=== PATIENT | male | born 1980 | race Caucasian/White ===

== ENCOUNTER → 2021-02-18 07:41 | Outpatient (BNVA) | payer SELFPAY | DX: Z11.1 Encounter for screening for respiratory tuberculosis (principal) ==

== ENCOUNTER → 2021-03-21 11:01 | Outpatient (BNVA) | payer SELFPAY | DX: Z76.89 Persons encountering health services in other specified circumstances (principal) ==

== ENCOUNTER 2023-04-02 14:43 | Outpatient (AMB) | payer OTHER, SELFPAY ==
--- NOTE | 2023-04-02 14:52 | MHC.PC.OV ---
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 Accompanied by: Self / Same As Patient Allergies No Known Allergies Allergy (Verified 04/02/23 14:57) Tobacco use date assessed: 04/02/23 Dental Screening Dental Screen Date: 04/02/23 Did you have a dental visit in the last 12 months?: No Did you have a dental problem in the last 6 months where you did not have access to dental care?: No Was dental information given to patient?: Yes HPI 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 Abd surgery for testicular metastasis. R ACL FHx: mGM: DM. SocHx: Nonsmoker. EtOH social few days a week 1-2 or up to 3-4 weekends PFSH Medical History (Updated 04/02/23 @ 16:07 by Trip Mcmillan) Anxiety Testicular cancer Tinea versicolor Surgical History (Updated 04/02/23 @ 15:14 by Amy Wetzel MA) H/O abdominal surgery History of orchiectomy History of repair of ACL Family History (Updated 04/02/23 @ 15:15 by Amy Wetzel MA) Maternal Grandfather Diabetes Social History Housing: Apartment Patient Tobacco Use Status: Never used Tobacco e-Cigarette/Vaping Use: Never Used service: No Current occupational status: employed Current occupation: [employer] Cognitive needs: No Hearing needs: No Vision needs: No Questionnaire PHQ-9 Over the last 2 weeks, how often have you been bothered by any of the following problems? 1. Little interest or pleasure in doing things: not at all 2. Feeling down, depressed, or hopeless: not at all 3. Trouble falling or staying asleep, or sleeping too much: not at all 4. Feeling tired or having little energy: not at all 5. Poor appetite or overeating: not at all 6. Feeling bad about yourself - or that you are a failure or have let yourself or your family down: not at all 7. Trouble concentrating on things, such as reading the newspaper or watching television: not at all 8. Moving or speaking so slowly that other people could have noticed. Or the opposite - being so fidgety or restless that you have been moving around a lot more than usual: not at all 9. Thoughts that you would be better off or of hurting yourself in some way: not at all Total score: 0 Source: Developed by Drs. Joel Glass, Mei Long, Marvin Pedroza and colleagues, with an educational marcelo from [employer]. Thrive Questionnaire Date Thrive assessed: 04/02/23 I am a: Patient What is your living situation today?: I have a steady place to live Within the past 12 months, did the food you bought not last and you didn't have the money to get more?: Never true Within the past 12 months, did you worry whether your food would run out before you got money to buy more?: Never true Do you have trouble paying for medicines?: No Do you have trouble getting transportation to medical appointments?: No Do you have trouble paying your heating and electricity bill?: No Do you have trouble taking care of your child, family member or friend?: No Do you have trouble with day-to-day activities such as bathing, preparing meals, shopping, managing finances, etc.?: No Are you currently unemployed and looking for a job?: No Are you interested in more education?: No Please select the resources that you would like help with: None Currently or been in a relationship where the following occur: no concerns reported AUDIT C Alcohol Use Questionnaire (AUDIT-C) 1. How often do you have a drink containing alcohol?: 2-3 times a week 2. How many drinks containing alcohol do you have on a typical day when you are drinking?: 1 or 2 3. How often do you have six or more drinks on one occasion?: Never Total Score: 3 JOSE-7 AMB Questionnaire JOSE-7 Feeling nervous, anxious, or on edge: 1 = Several days Not being able to stop or control worryin = Not at all Worrying too much about different things: 0 = Not at all Trouble relaxin = Not at all Being so restless that it is hard to sit still: 0 = Not at all Becoming easily annoyed or irritable: 0 = Not at all Feeling afraid as if something awful might happen: 0 = Not at all Total JOSE-7 score (0-4 normal; 5-9 mild; 10-14 moderate; 15-21 severe): 1 Source: Developed by Drs. oJel Glass, Mei Long, Marvin Pedroza and colleagues, with an educational marcelo from [employer]. Review of Systems Const Denies chills, Denies fatigue, Denies fever(s), Denies headache(s) and Denies weakness ENT Denies dizziness and Denies headache(s) Card Denies chest pain, Denies lightheadedness, Denies dyspnea and Denies other (Palpitations) Resp Denies cough, Denies dyspnea, Denies wheezing and Denies other ( shortness of breath) Musc Denies numbness and Denies tingling Neuro Denies dizziness, Denies headache(s), Denies numbness, Denies tingling, Denies paresthesias and Denies weakness Psych Denies anxiety and Denies depression Endo Denies fatigue Aller/Immun Denies wheezing Physical exam (Primary Care) Vital Signs: Last Vital Signs Temp 97.6 F 04/02/23 14:53 Pulse 72 04/02/23 14:53 Resp 12 04/02/23 14:53 BP 118/64 04/02/23 14:53 Pulse Ox 98 04/02/23 14:53 Oxygen Delivery Method Room Air 04/02/23 14:53 BMI result Body Mass Index 26.1 Tobacco/Smoking Status: Tobacco use Status Tobacco use date assessed 04/02/23 04/02/23 14:59 Patient Tobacco Use Status Never used Tobacco 04/02/23 14:59 e-Cigarette/Vaping Use Never Used 04/02/23 14:59 PHQ-9: PHQ-9 Score PHQ-9: Total score 0 04/02/23 15:47 Thrive Assessment: Date of Thrive Assessment Date Thrive assessed 04/02/23 04/02/23 15:17 Currently or been in a relationship where the following occur: no concerns reported Const General: no acute distress and well developed Nutritional Appearance: well nourished Orientation/consciousness: patient oriented x3 HENMT Head: Yes normocephalic and Yes atraumatic Eyes General: appearance normal, both eyes and all related structures Pupils: Equal, round and reactive pupils present EOM: EOMs intact bilaterally Resp Effort & Inspection: normal respiratory effort Auscultation: clear to auscultation bilaterally Cardio Rate: regular rate Rhythm: regular rhythm Heart sounds: S1 normal heart sound present, S2 normal heart sound present, no gallops, no murmurs and no rubs Neuro General: patient oriented x3 and gait normal Cranial nerves: Yes Equal, round and reactive pupils present Psych Affect: normal affect Assessment and Plan Assessment & Plan (1) Anxiety: Code(s): F41.9 - Anxiety disorder, unspecified Plan: History of mild anxiety and patient notes that he was on fluoxetine in the past. He can let me know if he needs any a treatment but currently he is stable. (2) Tinea versicolor: Code(s): B36.0 - Pityriasis versicolor Plan: Recurrent tinea versicolor Start Diflucan and he can use ketoconazole shampoo Change short frequently and avoid excess moisture Referred to Dermatology at patient request (3) Difficulty sleeping: Code(s): G47.9 - Sleep disorder, unspecified Plan: Mild difficulty sleeping which is managed with melatonin. He can continue this strategy though I advised he take holidays from this when he can. (4) History of testicular cancer: Code(s): Z85.47 - Personal history of malignant neoplasm of testis Plan: Check labs (5) Laboratory exam ordered as part of routine general medical examination: Code(s): Z00.00 - Encounter for general adult medical examination without abnormal findings Plan: Check labs Orders: Orders Comprehensive [place]. Panel Fast Today Z00.00 - Encounter for general adult medical examination without abnormal findings Lipid Panel Today Z00.00 - Encounter for general adult medical examination without abnormal findings Prostate Specific Antigen Scr Today Z12.5 - Encounter for screening for malignant neoplasm of prostate TSH reflex Free T4 Today Z00.00 - Encounter for general adult medical examination without abnormal findings Microalbumin, Random (w Creat) Today I10 - Essential (primary) hypertension UA and rflx microscopic Today Z00.00 - Encounter for general adult medical examination without abnormal findings AFP Quad Screen Today Z85.47 - Personal history of malignant neoplasm of testis Carcinoembryonic Antigen Today Z85.47 - Personal history of malignant neoplasm of testis HCG Tumor Marker Today Z. - Personal history of malignant neoplasm of testis Lactate Dehydrogenase Today Z85. - Personal history of malignant neoplasm of testis Testosterone, Free/Total Today Z85. - Personal history of malignant neoplasm of testis Complete Blood Count Auto Diff Today Z. - Encounter for general adult medical examination without abnormal findings, Z.47 - Personal history of malignant neoplasm of testis Referrals Dermatology Referral B36.0 - Pityriasis versicolor Medications: New fluconazole (Diflucan) 150 mg PO QWEEK 4 tabs 0RF 28 days ketoconazole 1% (Nizoral A-D) 1 appl topical Q3D 200 mL 1RF 15 days Coding Level of Care Code New Pt Level 4 (92493) Diagnoses Anxiety F41.9 Tinea versicolor B36.0 Difficulty sleeping G47.9 History of testicular cancer Z. Laboratory exam ordered as part of routine general medical examination Z.
[2023-04-02 14:53] VITALS: BP 118/64; PULSE 72; RESP 12; TEMP 36.4; O2SAT 98; BMI 26.1
== END 2023-04-02 16:02 | disposition home or self-care (01) ==
PROVIDERS: PCP Family Medicine; Visit Provider Family Medicine
DX: F41.9 Anxiety disorder, unspecified (principal); B36.0 Pityriasis versicolor; G47.9 Sleep disorder, unspecified; Z85.47 Personal history of malignant neoplasm of testis; Z00.00 Encounter for general adult medical examination without abnormal findings
CPT/HCPCS: 99204

== ENCOUNTER → 2023-10-12 12:09 | Outpatient (BNVA) | payer OTHER, SELFPAY | PROVIDERS: PCP Family Medicine; Visit Provider Physician Assistant Medical | DX: Z13.89 Encounter for screening for other disorder (principal) | CPT/HCPCS: 36415; 84450; 84460; 85027; 86803; 87389; 99204 ==

== ENCOUNTER → 2023-10-14 13:17 | Outpatient (BNVA) | payer OTHER, SELFPAY | PROVIDERS: PCP Family Medicine; Visit Provider Physician Assistant Medical | DX: Z13.89 Encounter for screening for other disorder (principal) | CPT/HCPCS: 99213 ==

== ENCOUNTER 2023-10-21 14:30 | Outpatient (AMB) | payer OTHER, SELFPAY ==
[2023-10-21 14:34] VITALS: BP 104/66; PULSE 68; RESP 13; TEMP 36.6; O2SAT 98; BMI 26.1
--- NOTE | 2023-10-21 14:34 | A.OFFPC_ITS ---
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 No recent labs to review. Pt notes he keeps himself active and goes to the gym a few times a week. He states he tries to eat a healthy diet. [facility] Medical History Tinea versicolor Testicular cancer Anxiety Surgical History H/O abdominal surgery History of orchiectomy History of repair of ACL Family History Maternal Grandfather Diabetes Social History Housing: Condominium Patient Tobacco Use Status: Never used Tobacco e-Cigarette/Vaping Use: Never Used service: No Current occupational status: employed Current occupation: [employer] Cognitive needs: No Hearing needs: No Vision needs: Yes Questionnaire PHQ-9 Over the last 2 weeks, how often have you been bothered by any of the following problems? 1. Little interest or pleasure in doing things: not at all 2. Feeling down, depressed, or hopeless: not at all 3. Trouble falling or staying asleep, or sleeping too much: not at all 4. Feeling tired or having little energy: not at all 5. Poor appetite or overeating: not at all 6. Feeling bad about yourself - or that you are a failure or have let yourself or your family down: not at all 7. Trouble concentrating on things, such as reading the newspaper or watching television: not at all 8. Moving or speaking so slowly that other people could have noticed. Or the opposite - being so fidgety or restless that you have been moving around a lot more than usual: not at all 9. Thoughts that you would be better off or of hurting yourself in some way: not at all Total score: 0 Depression Screening Interpretation: Negative Depression Screening Done: Yes Source: Developed by Drs. Joel Glass, Mei Long, Marvin Pedroza and colleagues, with an educational marcelo from [employer]. Thrive Questionnaire Date Thrive assessed: 10/21/23 I am a: Patient What is your living situation today?: I have a steady place to live Within the past 12 months, did the food you bought not last and you didn't have the money to get more?: Never true Within the past 12 months, did you worry whether your food would run out before you got money to buy more?: Never true Do you have trouble paying for medicines?: No Do you have trouble getting transportation to medical appointments?: No Do you have trouble paying your heating and electricity bill?: No Do you have trouble taking care of your child, family member or friend?: No Do you have trouble with day-to-day activities such as bathing, preparing meals, shopping, managing finances, etc.?: No Are you currently unemployed and looking for a job?: No Are you interested in more education?: No Please select the resources that you would like help with: None Currently or been in a relationship where the following occur: no concerns reported THRIVE Score: 0 AUDIT C Alcohol Use Questionnaire (AUDIT-C) 1. How often do you have a drink containing alcohol?: 2-3 times a week 2. How many drinks containing alcohol do you have on a typical day when you are drinking?: 1 or 2 3. How often do you have six or more drinks on one occasion?: Never Total Score: 3 JOSE-7 AMB Questionnaire JOSE-7 Date JOSE - 7 assessed: 10/21/23 Feeling nervous, anxious, or on edge: 0 = Not at all Not being able to stop or control worryin = Not at all Worrying too much about different things: 0 = Not at all Trouble relaxin = Not at all Being so restless that it is hard to sit still: 0 = Not at all Becoming easily annoyed or irritable: 0 = Not at all Feeling afraid as if something awful might happen: 0 = Not at all Total JOSE-7 score (0-4 normal; 5-9 mild; 10-14 moderate; 15-21 severe): 0 Source: Developed by Drs. Joel Glass, Mei Long, Marvin Pedroza and colleagues, with an educational marcelo from [employer]. JOSE-7 Assessment Billing JOSE-7 Assessment Tool: JOSE-7 Assessment 59521 Review of Systems Const Denies chills, Denies fatigue, Denies fever(s), Denies headache(s) and Denies weakness Eyes Denies change in vision ENT Denies dizziness, Denies headache(s), Denies hearing loss, Denies nasal congestion, Denies sinus pain, Denies sinus pressure and Denies sore throat Card Denies chest pain, Denies lightheadedness, Denies dyspnea and Denies other (palpitations) Resp Denies cough, Denies dyspnea and Denies wheezing GI Denies abdominal pain, Denies melena, Denies hematochezia, Denies change in bowel habits, Denies dyspepsia and Denies nausea Denies hematuria and Denies dysuria Musc Denies abnormal gait, Denies myalgias, Denies arthralgias, Denies numbness and Denies tingling Skin/Breast Denies rash, Denies unusual bruising and Denies wounds Neuro Denies abnormal gait, Denies dizziness, Denies headache(s), Denies memory loss, Denies numbness, Denies Sensory deficit (Neuro), Denies tingling and Denies weakness Psych Denies anxiety, Denies depression and Denies memory loss Endo Denies cold intolerance, Denies fatigue, Denies heat intolerance, Denies polydipsia and Denies polyuria Max/Lymph Denies easy bleeding and Denies easy bruising Aller/Immun Denies wheezing Physical exam (Primary Care) Vital Signs: Last Vital Signs Temp 97.8 F 10/21/23 14:34 Pulse 68 10/21/23 14:34 Resp 13 10/21/23 14:34 BP 104/66 10/21/23 14:34 Pulse Ox 98 10/21/23 14:34 Oxygen Delivery Method Room Air 10/21/23 14:34 BMI result Body Mass Index 26.1 Tobacco/Smoking Status: Tobacco use Status Tobacco use date assessed 10/21/23 10/21/23 14:45 Patient Tobacco Use Status Never used Tobacco 10/21/23 14:39 e-Cigarette/Vaping Use Never Used 10/21/23 14:39 PHQ-9: PHQ-9 Score PHQ-9: Total score 0 10/21/23 14:47 Depression Screening Interpretation: Negative Thrive Assessment: Date of Thrive Assessment Date Thrive assessed 10/21/23 10/21/23 14:45 Currently or been in a relationship where the following occur: no concerns reported Const General: no acute distress, well developed, alert and awake Nutritional Appearance: well nourished Orientation/consciousness: patient oriented x3 HENMT Head: Yes normocephalic and Yes atraumatic Ears: hearing grossly normal bilaterally and TM's normal bilaterally General nose exam: Normal external nose present and Normal nares present Mouth: Normal oral and palatal mucosa present and moist mucous membranes Teeth and gingiva: dentition normal Throat: Yes posterior oropharynx normal Eyes General: appearance normal, both eyes and all related structures Pupils: Equal, round and reactive pupils present and Pupil accommodation reflex normal EOM: EOMs intact bilaterally Neck Neck: Yes normal visual inspection, Yes no lymphadenopathy and Yes trachea midline Thyroid: Thyroid normal Carotids: no bruits Lymphatic: no lymphadenopathy noted Chest Chest palpation & inspection: normal inspection of the chest Resp Effort & Inspection: normal respiratory effort Auscultation: clear to auscultation bilaterally Cardio Rate: regular rate Rhythm: regular rhythm Heart sounds: S1 normal heart sound present, S2 normal heart sound present, no gallops, no murmurs and no rubs Bruits: no abdominal aortic bruits and no carotid bruits GI Palpation (GI): No Abdominal aortic bruit present, Soft to palpation, nontender, No hepatosplenomegaly present and No Rebound tenderness present Auscultation: normal bowel sounds General: Yes no CVA tenderness Back/Spine/Pelvis Back: no CVA tenderness Cervical Spine: cervical ROM normal and No Cervical spine tenderness Thoracic/Lumbar Spine: thoraco-lumbar ROM normal, No pain with thoraco-lumbar ROM, No thoracic spinal tenderness and No lumbar spinal tenderness Skin Lesions: no lesions Rashes: no rashes Trauma: no lacerations or abrasions Wounds: no wounds Nails: normal Neuro General: patient oriented x3 Cranial nerves: Yes Equal, round and reactive pupils present Cognition (Neuro): normal cognition Gait exam (Neuro): Normal gait present Motor exam (neuro): 5/5 motor strength present throughout Sensory Exam: No Sensory deficit (Neuro) Deep tendon reflexes (DTR's): Right patellar reflex intensity grade: 2+ and Left patellar reflex intensity grade: 2+ Extrem General: Yes normal to inspection and No edema Psych Appearance: grossly normal Affect: normal affect Attitude: cooperative Thought process: Normal thought process present Assessment and Plan Assessment & Plan (1) Adult general medical exam: Code(s): Z00.00 - Encounter for general adult medical examination without abnormal findings Plan: 43-year-old?male?presents?for?complete?physical?exam Encouraged?ongoing?healthy?diet?with?active?lifestyle?and?plenty?of?exercise (2) Screening for prostate cancer: Code(s): Z12.5 - Encounter for screening for malignant neoplasm of prostate Plan: Checking?PSA?level (3) Rash: Code(s): R21 - Rash and other nonspecific skin eruption Plan: Rash?did?not?resolve?with?Diflucan?and?ketoconazole. Will?give?him?a?script?for?betamethasone-clotrimazole?cream?and?he?already?has?a ?referral?to?new?[place].??He?will?give?them?a?call. Medications: New clotrimazole-betamethasone 1-0.05 % 1 appl topical BID 60 grams 1RF 2 weeks Coding Level of Care Code Est Pt Level 3 (38621) Est Pt Prev Care 40-64y(56060) Diagnoses Adult general medical exam Z00.00 Screening for prostate cancer Z12.5 Rash R21 Additional Codes JOSE-7 Assessment Billing - JOSE-7 Assessment Tool: JOSE-7 Assessment 46463 ([id number])
== END 2023-10-21 15:11 | disposition home or self-care (01) ==
PROVIDERS: PCP Family Medicine; Visit Provider Family Medicine
DX: Z00.00 Encounter for general adult medical examination without abnormal findings (principal); Z12.5 Encounter for screening for malignant neoplasm of prostate; R21 Rash and other nonspecific skin eruption
CPT/HCPCS: 99213; 99396

== ENCOUNTER 2023-10-22 07:51 | Outpatient (REF) | payer OTHER, SELFPAY ==
[2023-10-22 08:03] LABS: MANUAL DIFF FLAG NO
[2023-10-22 08:24] LABS: Basophils Percent Auto 0.8 % (0-2); Eosinophils Absolute Auto 0.1 X10*3/uL (0.0-0.4); Hematocrit 46.4 % (42.0-52.0); Imm Gran Abs Auto 0.01 X10*3/uL (0.00-0.03); Imm Gran Pct Auto 0.2 % (0.0-0.4); Lymphocytes Percent Auto 40.3 % (20-40); Mean Corpuscular HGB Conc 34.5 g/dl (31.0-36.0); Mean Corpuscular Hemoglobin 30.4 pg (27.0-33.0); Mean Platelet Volume 10.5 fL (9.4-12.4); Monocytes Absolute Auto 0.4 X10*3/uL (0.1-1.2); Monocytes Percent Auto 7.7 % (2-11); Neutrophils Absolute Auto 2.4 x10*3/uL (2.0-8.3); Platelet Count 221 X10*3/uL (160-400); Red Blood Count 5.27 X10*6/uL (4.60-5.80); Red Cell Distribution Width 12.5 % (11.0-16.0); White Blood Count 4.9 X10*3/uL (4.8-10.8)
[2023-10-22 08:26] LABS: Appearance Urine Clear; Color Urine Yellow; Glucose Urine UA Negative (Negative); Leukocyte Esterase Urine Negative (Negative); Nitrite Urine Negative (Negative); Specific Gravity - Urine 1.025 (1.005-1.025); Urine Blood Negative (Negative); Urine Ketones Negative (Negative); Urine Protein Negative (Neg-Trace)
[2023-10-22 09:02] LABS: Alanine Aminotransferase 33 U/L (0-40); Albumin Level 4.9 g/dL (3.5-5.0); Alkaline Phosphatase 62 U/L (39-117); Anion Gap 13 (12-20); Aspartate Amino Transferase 24 U/L (5-37); Bilirubin Total 0.6 mg/dL (0.0-1.0); Blood Urea Nitrogen 12 mg/dL (9-16); Calcium 9.8 mg/dL (8.4-10.2); Carbon Dioxide 29 mmol/L (22-29); Chloride 104 mmol/L (96-108); Cholesterol 230 mg/dL (<200); Estimated Glomerular Filt Rate > 60; Glucose Fasting 102 mg/dL (60-99); HDL Cholesterol 40 mg/dL (>40); LDL Cholesterol Calculated 156 mg/dL (<100); Lactate Dehydrogenase 141 U/L (118-273); Potassium 4.4 mmol/L (3.3-5.1); Sodium 142 mmol/L (135-145); Total Protein 7.5 g/dL (6.5-8.0); Triglycerides 172 mg/dL (<150)
[2023-10-22 09:03] LABS: Creatinine Urine 229.06 mg/dL; Microalbum/Creatinine Ratio Ur 3.4 ug/mg cr (<30)
[2023-10-22 09:23] LABS: Prostate Specific Antigen Scr 0.32 ng/mL (<0.05-4.0)
[2023-10-22 09:42] LABS: Carcinoembryonic Antigen < 1.73 ng/mL
[2023-10-24 08:18] LABS: HCG Tumor Marker <5 mIU/mL (<5)
[2023-10-26 13:04] LABS: Alpha Fetoprotein 2.2 ng/mL (<6.1)
[2023-10-28 16:38] LABS: Testosterone, Free 46.5 pg/mL (35.0-155.0); Testosterone, Total 330 ng/dL (250-1100)
== END 2023-10-22 07:52 | disposition home or self-care (01) ==
LOC: HO.LAB 07:51
PROVIDERS: PCP Family Medicine; Visit Provider Family Medicine
DX: Z00.00 Encounter for general adult medical examination without abnormal findings (principal); Z12.5 Encounter for screening for malignant neoplasm of prostate; I10 Essential (primary) hypertension; Z85.47 Personal history of malignant neoplasm of testis
CPT/HCPCS: 36415; 80053; 80061; 81003; 81511; 82043; 82105; 82378; 82570; 83615; 84153; 84402; 84403; 84443; 84702; 85025

== ENCOUNTER → 2023-10-26 09:35 | Outpatient (BNVA) | payer OTHER, SELFPAY | PROVIDERS: PCP Family Medicine; Visit Provider Physician Assistant Medical | DX: Z13.89 Encounter for screening for other disorder (principal) | CPT/HCPCS: 36415; 82150; 82565; 84450; 84460; 85025; 99213 ==

== ENCOUNTER → 2024-01-12 08:04 | Outpatient (BNVA) | payer OTHER, SELFPAY | PROVIDERS: PCP Family Medicine | DX: Z13.89 Encounter for screening for other disorder (principal) | CPT/HCPCS: 84450; 84460; 86803; 87389; 99211 ==

== ENCOUNTER 2024-07-06 15:20 | Outpatient (AMB) | payer OTHER, SELFPAY ==
--- NOTE | 2024-07-06 15:23 | AM.OFFWIN_ITS ---
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 He reported experiencing discomfort and soreness in the testicular region for the past five days. The intensity of pain has been rated as two to three on a scale of zero to ten, with ten being the most severe. The patient has a significant medical history of left testicular cancer diagnosed in 2009, which involved surgical removal and chemotherapy. He expressed concern that the current pain resembles the discomfort associated with his prior cancer experience. The patient has not observed any associated swelling, redness, or palpable lumps, nor does he recall any incidents of trauma or strain that might account for the current symptoms. He denies any systemic symptoms such as fever or gastrointestinal discomfort, aside from a prior low-grade fever attributed to congestion. He is admits to being sexually active. [facility] Medical History Tinea versicolor Testicular cancer Anxiety Surgical History H/O abdominal surgery History of orchiectomy History of repair of ACL Family History Maternal Grandfather Diabetes Social History Housing: Condominium Patient Tobacco Use Status: Never used Tobacco e-Cigarette/Vaping Use: Never Used service: No Current occupational status: employed Current occupation: [employer] Cognitive needs: No Hearing needs: No Vision needs: Yes Review of Systems Const Details: Denies chills, Denies fatigue, Denies fever(s), Denies headache(s) and Denies weakness Cardiac Denies chest pain, Denies claudication, Denies leg edema, Denies lightheadedness, Denies palpitations, Denies dyspnea, Denies dyspnea on exertion, Denies orthopnea and Denies other (Loss of consciousness) Resp Denies cough, Denies excessive phlegm production, Denies dyspnea, Denies dyspnea on exertion, Denies snoring and Denies wheezing Reports as per HPI Physical Exam Vital Signs: Last Vital Signs Temp 98.8 F 07/06/24 15:25 Pulse 78 07/06/24 15:25 Resp 16 07/06/24 15:25 BP 120/71 07/06/24 15:25 Pulse Ox 100 07/06/24 15:25 Oxygen Delivery Method Room Air 07/06/24 15:25 BMI result Body Mass Index 25.3 Const Other: General: comfortable and no acute distress Orientation/consciousness: patient oriented x3 Chest Chest palpation & inspection: normal inspection of the chest Resp Auscultation: clear to auscultation bilaterally Cardiac Palpation: normal PMI Heart sounds: S1 normal heart sound present, S2 normal heart sound present, no gallops, no murmur, no rubs No detectable swelling, redness, or palpable lumps in the testicular region. No pain upon palpation. Assessment & Plan Assessment & Plan (1) Right testicular pain: Code(s): N50.811 - Right testicular pain Plan: An ultrasound of the testicular area is ordered on a stat basis to assess for any abnormalities and to further investigate the etiology of the pain. Will check urinalysis and screen for chlamydia and gonorrhea. (2) History of primary malignant neoplasm of left testicle: Code(s): Z85.47 - Personal history of malignant neoplasm of testis Plan: Consideration for referral to oncology for evaluation and monitoring, including possible blood tests for tumor markers if symptoms persist. Plan I discussed with the patient that while testicular pain can be due to various causes, given his history of left testicular cancer, careful evaluation is necessary. I recommended a stat ultrasound to assess for any potential abnormalities. If the ultrasound returns normal and symptoms persist, I would consider referring him to an oncologist for further evaluation, possibly including blood draws to check cancer markers, given his history. I explained the rationale for the use of imaging as a non-invasive diagnostic tool in this context and ensured he understood the next steps. The patient was receptive to this plan and agreed to proceed with the recommended investigations. I confirmed that he would be contacted shortly for the ultrasound appointment. Orders: Orders UA CC w/rflx Micro + Cult Today N50.811 - Right testicular pain US scrotum Today N50.811 - Right testicular pain CT NG by PCR Today N50.811 - Right testicular pain Patient Instructions: - Use Tylenol or ibuprofen as needed for pain relief. - Await a call to schedule the ultrasound. - Seek immediate care if symptoms worsen, such as severe pain, fever, or detection of a lump. Patient was informed and verbally consented to the use of an ambient scribe for clinic note documentation during this visit. Coding Level of Care Code Est Pt Level 4 (04054) Diagnoses Right testicular pain N50.811 History of primary malignant neoplasm of left testicle Z85.47
[2024-07-06 15:25] VITALS: BP 120/71; PULSE 78; RESP 16; TEMP 37.1; O2SAT 100; BMI 25.3
== END 2024-07-06 16:17 | disposition home or self-care (01) ==
LOC: HO.HMCWIW 15:20
PROVIDERS: PCP Family Medicine; Visit Provider Nurse Practitioner Family
DX: N50.811 Right testicular pain (principal); Z85.47 Personal history of malignant neoplasm of testis

== ENCOUNTER 2024-07-07 13:27 | Outpatient (REF) | payer OTHER, SELFPAY ==
--- NOTE | ~2024-07-07 | US_ITS ---
EXAMINATION: US SCROTUM CLINICAL INFORMATION: Right testicular pain. History of left testicular cancer with removal in 2009.. COMPARISON: None available. TECHNIQUE: A sonogram of the scrotum was performed assessing meehan-scale appearance and color Doppler flow. Spectral Doppler analysis of the arterial and venous flow were performed in the testes bilaterally. FINDINGS: RIGHT: Right testicle measures 4.4 x 1.7 x 2.9 cm, volume 11 mL. No focal testicular parenchymal lesion is visualized. Spectral Doppler analysis of the arterial and venous flow is normal in the right testis. Right epididymal head is normal in size. 0.4 x 0.4 x 0.3 cm right epididymal cyst versus spermatocele. No right hydrocele or varicocele is seen. Right epididymal Doppler flow appears unremarkable. LEFT: Left testicle not visualized, consistent with reported history of prior surgical removal. US/US scrotum IMPRESSION: Essentially unremarkable examination of the right testicle. Left testicle not visualized, consistent with reported history of prior surgical removal. Electronically signed by: Samuel Lane MD 07/08/2024 10:33 AM CALVIN
== END 2024-07-07 13:28 | disposition home or self-care (01) ==
LOC: HO.US 13:27
PROVIDERS: PCP Family Medicine; Visit Provider Nurse Practitioner Family
DX: N50.811 Right testicular pain (principal)
CPT/HCPCS: 76870

== ENCOUNTER 2024-07-11 10:52 | Outpatient (REF) | payer OTHER, SELFPAY ==
[2024-07-11 12:21] LABS: Appearance Urine Clear; Color Urine Yellow; Glucose Urine UA Negative (Negative); Leukocyte Esterase Urine Negative (Negative); Nitrite Urine Negative (Negative); PH 6.5 (5.0-9.0); Specific Gravity - Urine <= 1.005 (1.005-1.025); Urine Blood Negative (Negative); Urine Ketones Negative (Negative); Urine Protein Negative (Neg-Trace)
[2024-07-11 13:40] LABS: CT PCR NOT DETECTED (Not Detect.); NG PCR NOT DETECTED (Not Detect.)
== END 2024-07-11 10:53 | disposition home or self-care (01) ==
LOC: HO.LAB 10:52
PROVIDERS: PCP Family Medicine; Visit Provider Nurse Practitioner Family
DX: N50.811 Right testicular pain (principal); Z20.2 Contact with and (suspected) exposure to infections with a predominantly sexual mode of transmission
CPT/HCPCS: 81003; 87491; 87591

== ENCOUNTER 2025-04-05 15:17 | Outpatient (REF) | payer OTHER, SELFPAY ==
[2025-04-05 15:42] LABS: MANUAL DIFF FLAG NO
[2025-04-05 16:17] LABS: Appearance Urine Clear; Glucose Urine UA Negative (Negative); PH 6.0 (5.0-9.0); Specific Gravity - Urine >= 1.030 (1.005-1.025)
[2025-04-05 16:28] LABS: Hematocrit 40.7 % (42.0-52.0); Hemoglobin 14.0 g/dl (14.0-18.0); Imm Gran Abs Auto 0.03 X10*3/uL (0.00-0.03); Imm Gran Pct Auto 0.5 % (0.0-0.4); Lymphocytes Absolute Auto 2.0 X10*3/uL (1.2-4.9); Mean Corpuscular HGB Conc 34.4 g/dl (31.0-36.0); Mean Corpuscular Hemoglobin 30.6 pg (27.0-33.0); Mean Corpuscular Volume 89.1 fL (80.0-98.0); NRBC Abs Auto 0.000 X10*3/uL (0.0-0.012); NRBC Pct Auto 0.0 /100WBC (0.0-0.2); Platelet Count 202 X10*3/uL (160-400); Red Blood Count 4.57 X10*6/uL (4.60-5.80); White Blood Count 5.8 X10*3/uL (4.8-10.8)
[2025-04-05 16:58] LABS: Microalbum/Creatinine Ratio Ur 7.0 ug/mg cr (<30)
[2025-04-05 17:01] LABS: Alanine Aminotransferase 50 U/L (0-40); Albumin Level 4.9 g/dL (3.5-5.0); Alkaline Phosphatase 50 U/L (39-117); Anion Gap 11 (12-20); Aspartate Amino Transferase 27 U/L (5-37); Blood Urea Nitrogen 18 mg/dL (9-16); Calcium 9.4 mg/dL (8.4-10.2); Carbon Dioxide 28 mmol/L (22-29); Chloride 107 mmol/L (96-108); Cholesterol 258 mg/dL (<200); Estimated Glomerular Filt Rate > 60; HDL Cholesterol 49 mg/dL (>40); Potassium 3.7 mmol/L (3.3-5.1); Sodium 142 mmol/L (135-145); Total Protein 6.7 g/dL (6.5-8.0); Triglycerides 283 mg/dL (<150)
--- OUTSIDE RECORDS SUMMARY | 2025-04-05 17:22 | XMS_ITS | Clinical Summary ---
Author Organization [facility] Address [address] [facility] [address] [place] [address] Phone Care Team Providers Care Core Sticker Name Role Phone Joel Stiles MD Unavailable [phone] Unknown, Unknown Primary Care Provider Unavai lable Allergies No known active allergies Medications fluconazole (DIFLUCAN) 150 MG tabletIndicatio ns:Tinea versicolor Take 1 tab PO, q weekly x 3 doses. 3 tablet 2 Active FLUoxetine (PROZAC) 40 MG capsuleIndicati ons:Anxiety Take 1 capsule (40 mg total) by mouth daily. 30 capsule 5 2 04/23/20 22 Discontinu ed(No longer taking) Active Problems Problem Noted Date Diagnosed Date Screen for STD (sexually transmitted disease) Assessment & Plan (04/23/2022 4:28 PM EDT): Samuel would like to be screened for an STD panel. He is asymptomatic. I ordered the test and I will update him with the results when they come in. He will call if there are any other issues or concerns. He understands and agrees. Assessment & Plan (10/23/2021 8:36 AM EDT): Samuel would like to get an STD panel done. I ordered the tests today and I will update him with the results. He notes that his partner will also be getting an STD panel. He will call if there is any other issues or concerns. History of testicular cancer 12/07/2019 Anxiety 07/19/2019 Assessment & Plan (10/07/2021 8:07 PM EST): Samuel states that they fluoxetine 40 mg daily is doing a very good job with his anxiety. He is doing well at school. He is using very little of the hydroxyzine. He will continue this. He graduates in January and I will see him for an exam in January. Assessment & Plan (07/15/2021 6:13 PM EST): Samuel feels that the 20 mg fluoxetine seems to be adequately managing his anxiety. He has not used much of the hydroxyzine so I did send in a refill for him to try again particularly at night. We will follow-up in about 6 weeks. Assessment & Plan (06/12/2021 4:50 PM EST): Increase the Prozac from 10 mg to 20 mg. Try hydroxyzine 50 mg at at bedtime to help with sleep and less during the day. Follow-up by phone in 4 weeks. Assessment & Plan (05/09/2021 9:16 AM EDT): Discussed treatment options including daily medication, PRN medication, and supplements. He is reluctant but willing to try an SSRI. Recommended Fluoxetine. He would like to start as low as possible and understands this may need to be titrated up to be effective. Start Fluoxetine 10mg daily. Side effects reviewed. Recommended Vistaril 25mg TID PRN for acute anxiety. Side effects reviewed. FU in 4wk. Hypertriglyceridemia, familial 03/03/2018 Tinea versicolor 12/07/2017 Assessment & Plan (04/23/2022 4:27 PM EDT): Samuel has tinea versicolor and I refill his Diflucan-to be taken as directed. He will call if there are any other issues or concerns. He understands and agrees. Assessment & Plan (10/23/2021 8:36 AM EDT): Samuel has tinea versicolor and I wrote a prescription for Diflucan-to be taken as directed. He will call if there is any other issues or concerns. He understands and agrees. Resolved Problems Problem Noted Date Diagnosed Date Resolved Date Malignant neoplasm of testis 12/07/2017 12/07/2019 Immunizations Immunization Administration Dates Next Due COVID-19 (Pre-05/25) Pfizer Vaccine, mRNA, PF 09/16/2020,08/26/2020 DTP 03/27/1986, 2,1981,07/18,1981 Hepatitis B 04/05/1999,02/21/1999 Hepatitis B Adult 08/05/2019,10/14/1999 Influenza Quadrivalent Prese rvative Free IM 07/20/2020,11/09/2018 Influenza, Unspecified Formulation 05/30/2019 MMR 08/05/2019,03/10/1991,05/03/1982 Meningococcal MPSV4 05/02/1999 PPD Test 11/02/2018 Polio - OPV 03/27/1986, 2,1981,07/18,1981 Td (adult) 5 Lf Tetanus Toxo id, PF, Adsorbed 04/27/2001,03/01/1993 Tdap 07/18/2019 Family History Medical History Relation Comments No Known Problems Brother Hyperlipidemia Father Diabetes mellitus Maternal Grandfather Breast cancer Maternal Grandmother Relation Status Comments Brother Alive Father Alive Maternal Grandfather Maternal Grandmother Alive Mother Alive Paternal Grandfather Paternal Grandmother Sister Alive Social History Tobacco Use Types Packs/Day Years Used Date Smoking Tobacco: Never Smokeless Tobacco: Never Alcohol Use Standard Drinks/Week Comments Yes 0 (1 standard drink = 0.6 oz pur e alcohol) 2 drinks several days per week Child or Family Care Answer Date Record ed Do you have problems with on e of the following making it difficult for you to work, study, or receive health care? No 07/20/2020 Education Answer Date Recorded Are you interested in more education? Not on susan e 12/10/2022 Are you concerned about learning? Not on file 12/10/2022 No 12/10/2022 No 12/10/2022 Food Answer Date Recorded Within the past 6 months we worried whether our food would run out before we got money to buy more. Never True 07/20/2020 Within the past 6 months the food we bought just didn't last and we didn't have enough money to get more. Never True 0 Paying for Meds Answer Date Recorded Do you have trouble paying for medicines? No 07/20/2020 Paying Utility Bills Answer Date Record ed Do you have trouble paying your heating or elect ricity bill? No 07/20/2020 Transportation Answer Date Recorded Has the lack of transportati on kept you from medical appointments or from getting medications? No 07/20/2020 Digital Access Answer Date Recorded No 12/23/2022 No 12/23/2022 Reliable internet access at home? Not on file 12/23/2022 Device with a working camera? Not on file Sex and Gender Information Value Date Recorded Sex Assigned at Not on file Legal Sex Male 7:04 PM EST Gender Identity Not on file Sexual Orientation Not on file Last Filed Vital Signs Vital Sign Reading Time Taken Comments Blood Pressure 124/78 10/23/2021 7:55 AM EDT Pulse 66 04/23/2022 4:07 PM EDT Temperature 36 C (96.8 F) 10/23/2021 7:55 AM EDT Respiratory Rate 18 04/09/2020 11:15 AM EDT Oxygen Saturation 94% 04/23/2022 4:07 PM EDT Inhaled Oxygen Concentration - - Weight 87.1 kg (192 lb) 04/23/2022 4:07 PM EDT p t reported Height 175.4 cm (5' 9.06 ) 04/23/2022 4:07 PM ED T Body Mass Index 28.31 04/23/2022 4:07 PM EDT Plan of Treatment Health Maintenance Due Date Last Done Comments DEPRESSION SCREENING 05/08/2022 05/08/2021 SCREENING FOR DIABETES 04/13/2023 04/13/2020, 2019 COVID-19 VACCINE ( season) 2024 08/19/2021, 09/16/2020, 08/26/2020 INFLUENZA VACCINE (#1) 2025 , 07/20/2020, 05/30/2019, Additional history exists LIPID PANEL 04/13/2025 04/13/2020, 04/03, 07/22/2019, Additional history exists Adult Td,Tdap Booster 07/18/2029 07/18/2019 , 04/27/2001, 03/01/1993 MENINGOCOCCAL VACCINES (ACWY) Aged Out 05/02/1999 No longer eligible based on patient's age to complete this topic SMOKING STATUS SCREENING (Once After 26 Yrs) Completed 04/23/2022 HEPATITIS C SCREENING Completed 04/24/2022 , 04/24/2022, 10/23/2021, Additional history exists HIV ONE-TIME SCREENING (18-65 YEARS) Completed 04/24/2022 HEPATITIS A VACCINES Aged Out No long er eligible based on patient's age to complete this topic HIB VACCINES Aged Out No longer eligi ble based on patient's age to complete this topic MENINGOCOCCAL VACCINES (B) Aged Out N o longer eligible based on patient's age to complete this topic PNEUMOCOCCAL VACCINES (0-49 years) Aged Out No longer eligible based on patient's age to complete this topic Medical Devices Not on file Procedures Procedure Name Priority Date/Time Associated Diagnosis Comments HEPATITIS C ANTIBODY, QUALITATIVE Routine 04/24/2022 10:09 AM EDT Screen for STD (sexually transmitted disease) LIPID PANEL Routine 04/13/2020 9:22 AM EDT Hypertriglyceridemia , familial Screening for condition Family history of diabetes mellitus (DM) from Last 3 Months or Most Recently Relevant to Health Maintenance Results * Hepatitis C antibody, qualitative (04/24/2022 10:09 AM EDT) HCV NON-REACTIV E NON-REACTI VE [facility] Blood 04/24/2022 10:0 9 AM EDT 04/24/2022 10:13 AM EDT us Irwin Dawn DO LAB BLOOD ORDERABLES Final Resul t [facility] [address] [place] [address] * (ABNORMAL) Lipid panel (04/13/2020 9:22 AM EDT) HDL 55 mg/dL [facility] Comment: Interpretation <40 mg/dL: Low HDL cholesterol (major risk factor for CHD) Greater than or equal to 60 mg/dL: High HDL cholesterol ( negative risk factor for CHD) HDL - cholesterol is affected by a number of factors, e.g. smoking, excerise, hormones, sex and age. CHOLESTEROL 237 0 - 240 mg/dL [facility] TRIGLYCERIDES 201(H) 30 - 160 mg/dL [facility] LDL 142(H) 50 - 129 mg/dL [facility] Comment: LDL levels in terms of risk for coronary heart disease: <100 mg/dL: Optimal 100-129 mg/dL: Near or above optimal 130-159 mg/dL: Borderline high 160-189 mg/dL: High >190 mg/dL: Very High CARDIAC RISK RATIO 4.3 3.4 - 5.0 C [facility] Blood 04/13/2020 9:22 AM EDT 04/13/2020 9:23 AM EDT Joel Stiles MD LAB BLOOD ORDERABLES nal Result [facility] [address], [place] [id number] from Last 3 Months or Most Recently Relevant to Health Maintenance Insurance [id number] [place] [address] [place] [id number] [place] [facility] [address] [place] [facility] [address] [place] [facility] Care Teams Core Sticker Relationship Specialty Start Date End Date Unknown, Unknown, PCP - General 11/10/23 Joel Stiles MD [address] [place] [phone] [email or web address] Historical LMR Provider 05/24/17 Additional Source Comments The information contained in this document represents components of the legal health record. It is not the complete legal health record.[facility]
[2025-04-09 15:08] LABS: Testosterone, Free 39.1 pg/mL (35.0-155.0)
== END 2025-04-05 15:18 | disposition home or self-care (01) ==
LOC: HO.LAB 15:17
PROVIDERS: PCP Family Medicine; Visit Provider Family Medicine
DX: Z00.00 Encounter for general adult medical examination without abnormal findings (principal); Z85.47 Personal history of malignant neoplasm of testis; I10 Essential (primary) hypertension
CPT/HCPCS: 36415; 80053; 80061; 81003; 82043; 82105; 82570; 83615; 84402; 84403; 84443; 84702; 85025

== ENCOUNTER 2025-04-07 10:04 | Outpatient (AMB) | payer OTHER, SELFPAY ==
--- NOTE | 2025-04-07 10:01 | MHC.PC.OV ---
Intake Visit Reasons: Lab Results Intake Note: Samuel presents for a telehealth appointment to go over his lab results. Allergies No Known Allergies Allergy (Verified 04/07/25 10:02) Tobacco use date assessed: 04/07/25 Dental Screening Dental Screen Date: 04/07/25 Did you have a dental visit in the last 12 months?: No Did you have a dental problem in the last 6 months where you did not have access to dental care?: No Was dental information given to patient?: Patient declined HPI Lab Results HPI Details 45 y/o male presents to f/u labs via telemedicine. Labs drawn 04/05/25. Triglycerides 283. TC 258. LDL 153. HDL 49. Elevated ALT of 50. Pt notes he has been watching his diet and has been exercising. [facility] Medical History Tinea versicolor Testicular cancer Anxiety Surgical History H/O abdominal surgery History of orchiectomy History of repair of ACL Family History Maternal Grandfather Diabetes Social History (Updated 04/07/25 @ 10:03 by Maribel Brice MA) Housing: Condominium Alcohol intake: current Patient Tobacco Use Status: Never used Tobacco e-Cigarette/Vaping Use: Never Used Second Hand Smoke Exposure: Yes Use of substances other than those prescribed or required for medical reasons: No service: No Current occupational status: employed Current occupation: [employer] Cognitive needs: No Hearing needs: No Vision needs: Yes Questionnaire Thrive Questionnaire Date Thrive assessed: 10/21/23 AUDIT C Alcohol Use Questionnaire (AUDIT-C) 2. How many drinks containing alcohol do you have on a typical day when you are drinking?: 3 or 4 3. How often do you have six or more drinks on one occasion?: Never Total Score: 1 JOSE-7 AMB Questionnaire JOSE-7 Date JOSE - 7 assessed: 10/21/23 Source: Developed by Drs. Joel Glass, Mei Long, Marvin Pedroza and colleagues, with an educational marcelo from [employer]. Review of Systems Const Denies chills, Denies fatigue, Denies fever(s), Denies headache(s) and Denies weakness ENT Denies dizziness and Denies headache(s) Card Denies dyspnea Resp Denies cough, Denies dyspnea, Denies wheezing and Denies other (shortness of breath) Musc Denies numbness and Denies tingling Neuro Denies dizziness, Denies headache(s), Denies numbness, Denies tingling and Denies weakness Psych Denies anxiety and Denies depression Endo Denies fatigue Aller/Immun Denies wheezing Physical exam (Primary Care) Tobacco/Smoking Status: Tobacco use Status Tobacco use date assessed 04/07/25 04/07/25 10:04 Patient Tobacco Use Status Never used Tobacco 04/07/25 10:04 e-Cigarette/Vaping Use Never Used 04/07/25 10:04 Thrive Assessment: Date of Thrive Assessment Date Thrive assessed 10/21/23 04/07/25 10:04 Telehealth Telehealth Telehealth Platform: Telephone Location of provider rendering services: practice address Location of patient: address on file Patient Identification confirmed using: Name, : Yes Telehealth method: voice only Patient verbally consented to treatment: Yes Patient verbally consented to billing insurance company: Yes Patient informed of any privacy concerns related to visit: Yes Minutes spent on Phone/Video with Pt.: 11 Coding Level of Care Code Tele Est Pt Level 2 (26593) Diagnoses Hyperlipidemia E78.5 Elevated liver enzymes R74.8 Borderline anemia D64.9 History of testicular cancer Z85.47 Assessment & Plan Assessment & Plan (1) Hyperlipidemia: Code(s): E78.5 - Hyperlipidemia, unspecified Category: Medical Plan: LDL cholesterol is too high Patient says he is are working on a diet low in cholesterol Start atorvastatin We will follow-up on this in a couple of months (2) Elevated liver enzymes: Code(s): R74.8 - Abnormal levels of other serum enzymes Category: Medical Plan: Mildly elevated ALT Will repeat this with next lab draw (3) Borderline anemia: Code(s): D64.9 - Anemia, unspecified Category: Medical Plan: Very mild/borderline anemia Will repeat with next lab draw (4) History of testicular cancer: Code(s): Z85.47 - Personal history of malignant neoplasm of testis Category: Medical Plan: AFP, hCG and LDH all within normal range Testosterone levels are pending Plan Will also check PSA with next lab draw. Orders: Orders Prostate Specific Antigen Scr Today Z12.5 - Encounter for screening for malignant neoplasm of prostate Comprehensive [place]. Panel Fast Today Z00.00 - Encounter for general adult medical examination without abnormal findings Complete Blood Count Auto Diff Today Z00.00 - Encounter for general adult medical examination without abnormal findings Lipid Panel Today Z00.00 - Encounter for general adult medical examination without abnormal findings Medications: New atorvastatin (Lipitor) 20 mg PO BEDTIME 90 tabs 3RF 90 days E78.5 - Hyperlipidemia, unspecified
== END 2025-04-07 10:46 | disposition home or self-care (01) ==
LOC: HO.HMCFM 10:04
PROVIDERS: PCP Family Medicine; Visit Provider Family Medicine
DX: E78.5 Hyperlipidemia, unspecified (principal); R74.8 Abnormal levels of other serum enzymes; D64.9 Anemia, unspecified; Z85.47 Personal history of malignant neoplasm of testis

== ENCOUNTER 2025-06-23 07:52 | Outpatient (REF) | payer OTHER, SELFPAY ==
--- OUTSIDE RECORDS SUMMARY | 2025-06-23 07:55 | XMS_ITS | Clinical Summary ---
Author Organization [facility] Address [address] [facility] [address] [place] [address] Phone Care Team Providers Care Entry Level Business Analyst Name Role Phone Joel Stiles MD Unavailable [phone] Unknown, Unknown Primary Care Provider Unavai lable [...] Last Done Comments DEPRESSION SCREENING 05/08/2022 05/08/2021 INFLUENZA VACCINE (#1) 2025 , 07/20/2020, 05/30/2019, Additional history exists COVID-19 VACCINE ( season) 2025 08/19/2021, 09/16/2020, 08/26/2020 LIPID PANEL 04/13/2025 04/13/2020, 04/03, 07/22/2019, Additional history exists Adult Td,Tdap Booster 07/18/2029 07/18/2019 , 04/27/2001, 03/01/1993 IPV VACCINES Completed 03/27/1986, 07/05, 1981, Additional history exists MENINGOCOCCAL VACCINES (ACWY) Aged Out 05/02/1999 No longer eligible based on patient's age to complete this topic SMOKING STATUS SCREENING (Once After 26 Yrs) Completed 04/23/2022 HEPATITIS C SCREENING Completed 04/24/2022 , 04/24/2022, 04/24/2022, Additional history exists HIV ONE-TIME SCREENING (18-65 [...] AM EDT) HCV NON-REACTIV E NON-REACTI VE [facility] Blood 04/24/2022 10:0 9 AM EDT 04/24/2022 10:13 AM EDT us Irwin Dawn DO LAB BLOOD BKR ORDERABLES Final R esult [facility] [address] [place] [address] * (ABNORMAL) Lipid panel (04/13/2020 9:22 AM EDT) HDL 55 mg/dL [facility] Comment: Interpretation <40 mg/dL: Low HDL cholesterol (major risk factor for CHD) Greater than or equal to 60 mg/dL: High HDL cholesterol ( negative risk factor for CHD) HDL - cholesterol is affected by a number of factors, e.g. smoking, excerise, hormones, sex and age. CHOLESTEROL 237 0 - 240 mg/dL [facility] TRIGLYCERIDES 201(H) 30 - 160 mg/dL [facility] LDL 142(H) 50 - 129 mg/dL [facility] Comment: LDL levels in terms of risk for coronary heart disease: <100 mg/dL: Optimal 100-129 mg/dL: Near or above optimal 130-159 mg/dL: Borderline high 160-189 mg/dL: High >190 mg/dL: Very High CARDIAC RISK RATIO 4.3 3.4 - 5.0 C [facility] Blood 04/13/2020 9:22 AM EDT 04/13/2020 9:23 AM EDT Joel Stiles MD LAB BLOOD BKR ORDERABLE S Final Result [facility] [address] [place], [place] [id number] from Last 3 Months or Most Recently Relevant to Health Maintenance Insurance [address] [address] [place] [id number] [employer] [facility] [address] [place] [address] [facility] [address] [place] [address] [facility] A[facility] Care Teams Entry Level Business Analyst Relationship Specialty Start Date End Date Unknown, Unknown, PCP - General 11/10/23 Joel Stiles MD [address] [place] [address] [address] [place] [address] [email or web address] Historical LMR Provider 05/24/17 Additional Source Comments The information contained in this document represents components of the legal health record. It is not the complete legal health record.[facility]
[2025-06-23 08:33] LABS: Hematocrit 42.2 % (42.0-52.0); Hemoglobin 14.3 g/dl (14.0-18.0); Imm Gran Abs Auto 0.02 X10*3/uL (0.00-0.03); Imm Gran Pct Auto 0.4 % (0.0-0.4); Lymphocytes Absolute Auto 1.9 X10*3/uL (1.2-4.9); MANUAL DIFF FLAG NO; Mean Corpuscular HGB Conc 33.9 g/dl (31.0-36.0); Mean Corpuscular Hemoglobin 30.2 pg (27.0-33.0); Mean Corpuscular Volume 89.2 fL (80.0-98.0); NRBC Abs Auto 0.000 X10*3/uL (0.0-0.012); NRBC Pct Auto 0.0 /100WBC (0.0-0.2); Platelet Count 178 X10*3/uL (160-400); Red Blood Count 4.73 X10*6/uL (4.60-5.80); White Blood Count 5.6 X10*3/uL (4.8-10.8)
[2025-06-23 08:46] LABS: Alanine Aminotransferase 46 U/L (0-40); Albumin Level 4.8 g/dL (3.5-5.0); Alkaline Phosphatase 56 U/L (39-117); Anion Gap 11 (12-20); Aspartate Amino Transferase 27 U/L (5-37); Blood Urea Nitrogen 13 mg/dL (9-16); Calcium 9.2 mg/dL (8.4-10.2); Carbon Dioxide 28 mmol/L (22-29); Chloride 107 mmol/L (96-108); Cholesterol 168 mg/dL (<200); Estimated Glomerular Filt Rate > 60; HDL Cholesterol 43 mg/dL (>40); Potassium 4.1 mmol/L (3.3-5.1); Sodium 142 mmol/L (135-145); Total Protein 6.8 g/dL (6.5-8.0); Triglycerides 88 mg/dL (<150)
== END 2025-06-23 07:53 | disposition home or self-care (01) ==
LOC: HO.LAB 07:52
PROVIDERS: PCP Family Medicine; Visit Provider Family Medicine
DX: Z00.00 Encounter for general adult medical examination without abnormal findings (principal); Z12.5 Encounter for screening for malignant neoplasm of prostate; Z13.6 Encounter for screening for cardiovascular disorders
CPT/HCPCS: 36415; 80053; 80061; 84153; 85025

== ENCOUNTER 2025-06-26 13:50 | Outpatient (AMB) | payer OTHER, SELFPAY ==
[2025-06-26 13:53] VITALS: BP 110/84; PULSE 64; TEMP 36.4; O2SAT 99; BMI 25.4
--- NOTE | 2025-06-26 13:53 | MHC.PC.OV ---
Vital Signs 06/26/25 13:53 Height 5 ft 10 in Weight 177 lb BMI 25.4 BP 110/84 Blood Pressure Location Rt brachial Position Sitting Pulse 64 Pulse Source Pulse Oximeter Temp 97.6 F Temp Source Oral Pulse Oximetry (%) 99 Oxygen Delivery Method Room Air Intake Visit Reasons: CPE Allergies No Known Allergies Allergy (Verified 06/26/25 13:55) Medication List - Last Reconciled 06/26/25 by John Jack MD atorvastatin (Lipitor) 20 mg PO BEDTIME 90 days Tobacco use date assessed: 06/26/25 Dental Screening Dental Screen Date: 06/26/25 Did you have a dental visit in the last 12 months?: No Did you have a dental problem in the last 6 months where you did not have access to dental care?: No Was dental information given to patient?: No HPI CPE HPI Details 45 y/o male presents for a CPE with f/u labs, health maint. Labs drawn 06/23/25. Reviewed labs with pt. Elevated ALT of 46. Elevated fasting glucose of 102. Triglycerides improved from 283 to 88. TC 258 to 168. LDL 153 to 108. HDL 43. He is on artovastatin 20mg daily. Notes vision changes. A1c today 5.3%. [facility] Medical History Tinea versicolor Testicular cancer Anxiety Surgical History H/O abdominal surgery History of orchiectomy History of repair of ACL Family History Maternal Grandfather Diabetes Social History Housing: Condominium Alcohol intake: current Patient Tobacco Use Status: Never used Tobacco e-Cigarette/Vaping Use: Never Used Second Hand Smoke Exposure: Yes service: No Current occupational status: employed Current occupation: [employer] Cognitive needs: No Hearing needs: No Vision needs: Yes Questionnaire PHQ-9 Over the last 2 weeks, how often have you been bothered by any of the following problems? 1. Little interest or pleasure in doing things: not at all 2. Feeling down, depressed, or hopeless: not at all 3. Trouble falling or staying asleep, or sleeping too much: not at all 4. Feeling tired or having little energy: not at all 5. Poor appetite or overeating: not at all 6. Feeling bad about yourself - or that you are a failure or have let yourself or your family down: not at all 7. Trouble concentrating on things, such as reading the newspaper or watching television: not at all 8. Moving or speaking so slowly that other people could have noticed. Or the opposite - being so fidgety or restless that you have been moving around a lot more than usual: not at all 9. Thoughts that you would be better off or of hurting yourself in some way: not at all Total score: 0 Depression Screening Interpretation: Negative Depression Screening Done: Yes 89140 - PHQ-9 Billing: Yes Source: Developed by Drs. Joel Glass, Mei Long, Marvin Pedroza and colleagues, with an educational marcelo from [employer]. Thrive Questionnaire Date Thrive assessed: 06/26/25 I am a: Patient What is your living situation today?: I have a steady place to live Within the past 12 months, did the food you bought not last and you didn't have the money to get more?: Never true Within the past 12 months, did you worry whether your food would run out before you got money to buy more?: Never true Do you have trouble paying for medicines?: No Do you have trouble getting transportation to medical appointments?: No Do you have trouble paying your heating and electricity bill?: No Do you have trouble taking care of your child, family member or friend?: No Do you have trouble with day-to-day activities such as bathing, preparing meals, shopping, managing finances, etc.?: No Are you currently unemployed and looking for a job?: No Are you interested in more education?: No Please select the resources that you would like help with: None Currently or been in a relationship where the following occur: I choose not to answer THRIVE Score: 0 AUDIT C Alcohol Use Questionnaire (AUDIT-C) 1. How often do you have a drink containing alcohol?: 2-3 times a week 2. How many drinks containing alcohol do you have on a typical day when you are drinking?: 3 or 4 3. How often do you have six or more drinks on one occasion?: Never Total Score: 4 JOSE-7 AMB Questionnaire JOSE-7 Date JOSE - 7 assessed: 06/26/25 Feeling nervous, anxious, or on edge: 0 = Not at all Not being able to stop or control worryin = Not at all Worrying too much about different things: 0 = Not at all Trouble relaxin = Not at all Being so restless that it is hard to sit still: 0 = Not at all Becoming easily annoyed or irritable: 0 = Not at all Feeling afraid as if something awful might happen: 0 = Not at all Total JOSE-7 score (0-4 normal; 5-9 mild; 10-14 moderate; 15-21 severe): 0 Source: Developed by Drs. Joel Glass, Mei Long, Marvin Pedroza and colleagues, with an educational marcelo from [employer]. JOSE-7 Assessment Billing JOSE-7 Assessment Tool: JOSE-7 Assessment 32238 Review of Systems Const Denies chills, Denies fatigue, Denies fever(s), Denies headache(s) and Denies weakness Eyes Denies change in vision ENT Denies dizziness, Denies headache(s), Denies hearing loss, Denies nasal congestion, Denies sinus pain, Denies sinus pressure and Denies sore throat Card Denies chest pain, Denies lightheadedness, Denies dyspnea and Denies other (palpitations) Resp Denies cough, Denies dyspnea and Denies wheezing GI Denies abdominal pain, Denies melena, Denies hematochezia, Denies change in bowel habits, Denies dyspepsia and Denies nausea Denies hematuria and Denies dysuria Musc Denies abnormal gait, Denies myalgias, Denies arthralgias, Denies numbness and Denies tingling Skin/Breast Denies rash, Denies unusual bruising and Denies wounds Neuro Denies abnormal gait, Denies dizziness, Denies headache(s), Denies memory loss, Denies numbness, Denies Sensory deficit (Neuro), Denies tingling and Denies weakness Psych Denies anxiety, Denies depression and Denies memory loss Endo Denies cold intolerance, Denies fatigue, Denies heat intolerance, Denies polydipsia and Denies polyuria Max/Lymph Denies easy bleeding and Denies easy bruising Aller/Immun Denies wheezing Physical exam (Primary Care) Vital Signs: Last Vital Signs Temp 97.6 F 06/26/25 13:53 Pulse 64 06/26/25 13:53 BP 110/84 06/26/25 13:53 Pulse Ox 99 06/26/25 13:53 Oxygen Delivery Method Room Air 06/26/25 13:53 BMI result Body Mass Index 25.4 Tobacco/Smoking Status: Tobacco use Status Tobacco use date assessed 06/26/25 06/26/25 13:59 Patient Tobacco Use Status Never used Tobacco 06/26/25 13:59 e-Cigarette/Vaping Use Never Used 06/26/25 13:59 PHQ-9: PHQ-9 Score PHQ-9: Total score 0 06/26/25 14:19 Depression Screening Interpretation: Negative Thrive Assessment: Date of Thrive Assessment Date Thrive assessed 06/26/25 06/26/25 13:59 Currently or been in a relationship where the following occur: I choose not to answer Const General: no acute distress, well developed, alert and awake Nutritional Appearance: well nourished Orientation/consciousness: patient oriented x3 HENMT Head: Yes normocephalic and Yes atraumatic Ears: hearing grossly normal bilaterally and TM's normal bilaterally General nose exam: Normal external nose present and Normal nares present Mouth: Normal oral and palatal mucosa present and moist mucous membranes Teeth and gingiva: dentition normal Throat: Yes posterior oropharynx normal Eyes General: appearance normal, both eyes and all related structures Pupils: Equal, round and reactive pupils present and Pupil accommodation reflex normal EOM: EOMs intact bilaterally Neck Neck: Yes normal visual inspection, Yes no lymphadenopathy and Yes trachea midline Thyroid: Thyroid normal Carotids: no bruits Lymphatic: no lymphadenopathy noted Chest Chest palpation & inspection: normal inspection of the chest Resp Effort & Inspection: normal respiratory effort Auscultation: clear to auscultation bilaterally Cardio Rate: regular rate Rhythm: regular rhythm Heart sounds: S1 normal heart sound present, S2 normal heart sound present, no gallops, no murmurs and no rubs Bruits: no abdominal aortic bruits and no carotid bruits GI Palpation (GI): No Abdominal aortic bruit present, Soft to palpation, nontender, No hepatosplenomegaly present and No Rebound tenderness present Auscultation: normal bowel sounds General: Yes no CVA tenderness Back/Spine/Pelvis Back: no CVA tenderness Cervical Spine: cervical ROM normal and No Cervical spine tenderness Thoracic/Lumbar Spine: thoraco-lumbar ROM normal, No pain with thoraco-lumbar ROM, No thoracic spinal tenderness and No lumbar spinal tenderness Skin Lesions: no lesions Rashes: no rashes Trauma: no lacerations or abrasions Wounds: no wounds Nails: normal Neuro General: patient oriented x3 Cranial nerves: Yes Equal, round and reactive pupils present Cognition (Neuro): normal cognition Gait exam (Neuro): Normal gait present Motor exam (neuro): 5/5 motor strength present throughout Sensory Exam: No Sensory deficit (Neuro) Deep tendon reflexes (DTR's): Right patellar reflex intensity grade: 2+ and Left patellar reflex intensity grade: 2+ Extrem General: Yes normal to inspection and No edema Psych Appearance: grossly normal Affect: normal affect Attitude: cooperative Thought process: Normal thought process present Results AMB Hemoglobin A1c AMB Hemoglobin A1c 5.3 % Last Edit by Amira Santiago CMA on 06/26/25 15:05 Coding Level of Care Code Est Pt Prev Care 40-64y(66291) Diagnoses Adult general medical exam Z00.00 Elevated liver enzymes R74.8 Elevated fasting glucose R73.01 Hyperlipidemia E78.5 Screening for prostate cancer Z12.5 Vision changes H53.9 Additional Codes JOSE-7 Assessment Billing - JOSE-7 Assessment Tool: JOSE-7 Assessment 83735 ([id number]) PHQ-9 - 27692 - PHQ-9 Billing: Yes ([id number]) Assessment & Plan Assessment & Plan (1) Adult general medical exam: Code(s): Z00.00 - Encounter for general adult medical examination without abnormal findings Category: Medical Plan: 45-year-old male presents for complete physical exam Encouraged healthy diet with active lifestyle and plenty of exercise (2) Elevated liver enzymes: Code(s): R74.8 - Abnormal levels of other serum enzymes Category: Medical Plan: Mildly elevated ALT which has improved Encouraged weaning of alcohol with goal of cessation Encouraged good hydration and a little bit weight loss Will continue monitor (3) Elevated fasting glucose: Code(s): R73.01 - Impaired fasting glucose Category: Medical Plan: Mildly elevated fasting blood sugar. A1c today 5.3%. Still in normal range Will continue to monitor periodically (4) Hyperlipidemia: Code(s): E78.5 - Hyperlipidemia, unspecified Category: Medical Plan: Had started patient on atorvastatin 20 mg daily. LDL cholesterol nearly at goal now Continue atorvastatin 20 mg daily and work at a diet low in saturated fats and cholesterol Will continue to monitor (5) Screening for prostate cancer: Code(s): Z12.5 - Encounter for screening for malignant neoplasm of prostate Category: Medical Plan: PSA was within normal range Will continue screening (6) Vision changes: Code(s): H53.9 - Unspecified visual disturbance Category: Medical Plan: Complaints of vision changes and patient has no astigmatism. He also says that was told he has a higher risk glaucoma Referred to ophthalmology Orders: Orders AMB Hemoglobin A1c Today Z13.9 - Encounter for screening, unspecified Hemoglobin A1c Today R73.01 - Impaired fasting glucose Complete Blood Count Auto Diff Today D64.9 - Anemia, unspecified, Z00.00 - Encounter for general adult medical examination without abnormal findings Comprehensive [place]. Panel Fast Today R74.8 - Abnormal levels of other serum enzymes, Z00.00 - Encounter for general adult medical examination without abnormal findings Lipid Panel Today E78.5 - Hyperlipidemia, unspecified, Z00.00 - Encounter for general adult medical examination without abnormal findings Referrals Ophthalmology Referral H53.9 - Unspecified visual disturbance
--- OUTSIDE RECORDS SUMMARY | 2025-06-26 18:46 | XMS_ITS | Clinical Summary ---
Author Organization [facility] Address [address] [facility] [address] [place] [address] Phone Care Team Providers Care Sports Athletic Trainer Name Role Phone Joel Stiles MD Unavailable [phone] Unknown, Unknown Primary Care Provider Unavai lable [...] AM EDT) HCV NON-REACTIV E NON-REACTI VE [facility] Blood 04/24/2022 10:0 9 AM EDT 04/24/2022 10:13 AM EDT us Irwin Dawn DO LAB BLOOD BKR ORDERABLES Final R esult [facility] [address] [place] [address] * (ABNORMAL) Lipid panel (04/13/2020 9:22 AM EDT) HDL 55 mg/dL [facility] Comment: Interpretation <40 mg/dL: Low HDL cholesterol (major risk factor for CHD) Greater than or equal to 60 mg/dL: High HDL cholesterol ( negative risk factor for CHD) HDL - cholesterol is affected by a number of factors, e.g. smoking, excerise, hormones, sex and age. CHOLESTEROL 237 0 - 240 mg/dL [facility] TRIGLYCERIDES 201(H) 30 - 160 mg/dL [facility] LDL 142(H) 50 - 129 mg/dL [facility] Comment: LDL levels in terms of risk for coronary heart disease: <100 mg/dL: Optimal 100-129 mg/dL: Near or above optimal 130-159 mg/dL: Borderline high 160-189 mg/dL: High >190 mg/dL: Very High CARDIAC RISK RATIO 4.3 3.4 - 5.0 C [facility] Blood 04/13/2020 9:22 AM EDT 04/13/2020 9:23 AM EDT us Joel Stiles MD LAB BLOOD BKR ORDERABLE S Final Result [facility] [address] [place] [address] from Last 3 Months or Most Recently Relevant to Health Maintenance Insurance [address] [place] [id number] [facility] [place] [id number] [facility] [address] [employer] [facility] [employer] [address] [place] Care Teams Sports Athletic Trainer Relationship Specialty Start Date End Date Unknown, Unknown, PCP - General 11/10/23 Joel Stiles MD [address] [place] [address] [place] [id number] [email or web address] Historical LMR Provider 05/24/17 Additional Source Comments The information contained in this document represents components of the legal health record. It is not the complete legal health record.[facility]
== END 2025-06-26 15:07 | disposition home or self-care (01) ==
LOC: HO.HMCFM 13:51
PROVIDERS: PCP Family Medicine; Visit Provider Family Medicine
DX: Z00.00 Encounter for general adult medical examination without abnormal findings (principal); R74.8 Abnormal levels of other serum enzymes; R73.01 Impaired fasting glucose; E78.5 Hyperlipidemia, unspecified; Z12.5 Encounter for screening for malignant neoplasm of prostate; H53.9 Unspecified visual disturbance; Z13.9 Encounter for screening, unspecified

== ENCOUNTER → 2025-06-26 13:50 | Outpatient (BNVA) | payer OTHER, SELFPAY | PROVIDERS: PCP Family Medicine; Visit Provider Family Medicine | DX: Z00.00 Encounter for general adult medical examination without abnormal findings (principal); Z12.5 Encounter for screening for malignant neoplasm of prostate; R74.8 Abnormal levels of other serum enzymes; R73.01 Impaired fasting glucose; E78.5 Hyperlipidemia, unspecified; H53.9 Unspecified visual disturbance | CPT/HCPCS: 83036; 96127 ==